=== PATIENT | female | born 1945 | race Caucasian/White ===

== ENCOUNTER 2016-08-25 19:27 | Emergency (ER) | payer MEDICARE ==
--- NOTE | 2016-08-25 20:43 | RAD ---
RIGHT ANKLE THREE VIEWS: History: Right ankle injury. FINDINGS: The ankle mortise is intact. No acute fracture or dislocation are apparent. IMPRESSION: No acute osseous abnormalities are demonstrated. POS: [facility]
--- NOTE | 2016-08-25 20:50 | RAD ---
RIGHT FOOT THREE VIEWS: History: Right foot injury. FINDINGS: Lisfranc joint alignment is anatomic. Mild bunion deformity is noted. There is no acute fracture, di slocation, or aggressive osseous erosions. IMPRESSION: No acute osseous abnormalities are demonstrated. POS: [facility]
== END 2016-08-25 20:30 | disposition home or self-care (01) ==
LOC: MADERS 19:27
DX: S93.601A Unspecified sprain of right foot, initial encounter (principal); I10 Essential (primary) hypertension; Z87.891 Personal history of nicotine dependence; X50.1XXA Overexertion from prolonged static or awkward postures, initial encounter

== ENCOUNTER 2016-09-04 10:13 | Outpatient (CLI) | payer MEDICARE ==
[2016-09-04 11:08] LABS: Anion Gap 11 mmol/L (10-20); BUN (Urea Nitrogen) 20 mg/dL (9.8-20.1); Calc. Creatinine Clearance 0 mL/min (70-130); Calcium 8.8 mg/dL (7.8-10.44); Carbon Dioxide 26 mmol/L (23-31); Chloride 103 mmol/L (98-107); Estimated GFR-MDRD 65; Glucose 93 mg/dL (80-115); Potassium 3.8 mmol/L (3.5-5.1); Sodium 136 mmol/L (136-145)
== END 2016-09-04 10:14 | disposition home or self-care (01) ==
LOC: MADLABBHPM 10:13
PROVIDERS: ATTEND Family Medicine
DX: I10 Essential (primary) hypertension (principal)
CPT/HCPCS: 36415; 80048

== ENCOUNTER 2016-12-04 09:53 | Outpatient (CLI) | payer MEDICARE ==
[2016-12-04 10:24] LABS: #Basophils 0.1 thou/uL (0.0-0.2); #Eosinphils 0.2 thou/uL (0.0-0.7); #Lymphocytes 1.4 thou/uL (1.20-3.40); #Monocytes 0.7 thou/uL (0.11-0.59); #Neutrophils 2.6 thou/uL (1.40-6.50); %Basophils 1.6 % (0.0-1.0); %Eosinophils 4.2 % (0.0-10.0); %Monocytes 13.6 % (0.0-10.0); %Neutrophils 52.6 % (42.0-75.0); Hemoglobin 13.4 g/dL (12.0-16.0); Mean Corpuscular HGB CONC 33.6 g/dL (32.0-36.0); Mean Corpuscular Hemoglobin 31.9 pg (27.0-31.0); Mean Corpuscular Volume 94.9 fl (81.0-99.0); Mean Platelet Volume 7.6 fL (7.4-10.4); Platelet Count 218 thou/uL (130-400); Red Blood Cell (RBC) Count 4.21 mill/uL (4.20-5.40)
[2016-12-04 10:39] LABS: Bilirubin Negative (Negative); Blood, Urine Negative (Negative); Clarity Clear (Clear); Glucose, Urine (Dipstick) Negative (Negative); Leukocyte Negative (Negative); Nitrite Negative (Negative); Protein, Urine (Dipstick) Negative (Neg-Trace); RBC/HPF 0-3 HPF (0-3); Urobilinogen 0.2 mg/dL (0.2-1.0); WBC/HPF 0-3 HPF (0-3); pH, Urine 5.5 (5.0-9.0)
[2016-12-04 10:40] LABS: Bacteria/HPF Rare-Few HPF (None Seen)
[2016-12-04 11:04] LABS: ALT (SGPT) 15 U/L (8-55); AST (SGOT) 21 U/L (5-34); Alkaline Phosphatase 62 U/L (40-150); Anion Gap 17 mmol/L (10-20); BUN (Urea Nitrogen) 25 mg/dL (9.8-20.1); Bilirubin, Total 0.5 mg/dL (0.2-1.2); Calc. Creatinine Clearance 0 mL/min (70-130); Calcium 8.8 mg/dL (7.8-10.44); Carbon Dioxide 21 mmol/L (23-31); Cardiac Risk 2.6 (Less than 4.5); Chloride 101 mmol/L (98-107); Cholesterol 148 mg/dl (< 200 Desired); Estimated GFR-MDRD 57; Globulin 3.1 g/dL (2.4-3.5); Glucose 87 mg/dL (80-115); HDL Cholesterol 58 mg/dL (>60 Neg Risk); LDL Cholesterol, Calculated 76 mg/dL; Potassium 3.6 mmol/L (3.5-5.1); Protein, Total 7.1 g/dL (6.0-8.3); Sodium 135 mmol/L (136-145); Triglycerides 69 mg/dL (Less than 150)
== END 2016-12-04 09:54 | disposition home or self-care (01) ==
LOC: MADLABBHPM 09:53
PROVIDERS: ATTEND Family Medicine
DX: I12.9 Hypertensive chronic kidney disease with stage 1 through stage 4 chronic kidney disease, or unspecified chronic kidney disease (principal); N18.2 Chronic kidney disease, stage 2 (mild); F32.9 Major depressive disorder, single episode, unspecified
CPT/HCPCS: 36415; 80053; 80061; 81001; 84443; 85025

== ENCOUNTER 2018-12-10 08:13 | Outpatient (CLI) | payer MEDICARE ==
[2018-12-10 09:09] LABS: Clarity Clear (Clear); Leukocyte Negative (Negative)
[2018-12-10 09:10] LABS: Bilirubin Negative (Negative); Blood, Urine Negative (Negative); Glucose, Urine (Dipstick) Negative (Negative); Nitrite Negative (Negative); Protein, Urine (Dipstick) Negative (Neg-Trace); Urobilinogen 0.2 mg/dL (Less than 2)
[2018-12-10 09:13] LABS: Bacteria/HPF 1+ HPF (None Seen); RBC/HPF 0-3 HPF (0-3); WBC/HPF 0-3 HPF (0-3)
[2018-12-10] MEDS ORDERED: Iopamidol 370 76% 100 ML VIAL ONE (09:30)
[2018-12-10 13:13] LABS: Hemoglobin 13.6 g/dL (12.0-16.0); Red Blood Cell (RBC) Count 4.68 mill/uL (4.20-5.40); White Blood Cell (WBC) Count 6.9 thou/uL (4.8-10.8)
[2018-12-10 13:14] LABS: #Lymphocytes 1.1 thou/uL (1.20-3.40); #Monocytes 0.4 thou/uL (0.11-0.59); #Neutrophils 5.8 thou/uL (1.40-6.50); %Basophils 0.4 % (0.0-1.0); %Lymphocytes 15.4 % (21.0-51.0); %Monocytes 0.6 % (0.0-10.0); %Neutrophils 83.6 % (42.0-75.0); Mean Corpuscular HGB CONC 31.7 g/dL (32.0-36.0); Mean Corpuscular Hemoglobin 29.1 pg (27.0-31.0); Mean Corpuscular Volume 91.9 fL (78.0-98.0); Mean Platelet Volume 6.6 fL (7.4-10.4); Platelet Count 274 thou/uL (130-400); RBC Distribution Width 12.3 % (11.5-14.5)
[2018-12-10 13:15] LABS: Sodium 135 mmol/L (136-145)
[2018-12-10 13:16] LABS: Albumin 4.5 g/dL (3.4-4.8); Alkaline Phosphatase 92 U/L (40-150); BUN (Urea Nitrogen) 25 mg/dL (9.8-20.1); Bilirubin, Total 0.4 mg/dL (0.2-1.2); Calc. Creatinine Clearance 0 mL/min (70-130); Calcium 9.1 mg/dL (7.8-10.44); Carbon Dioxide 21 mmol/L (23-31); Chloride 101 mmol/L (98-107); Cholesterol 203 mg/dL (< 200 Desired); Estimated GFR-MDRD 59; Globulin 3.1 g/dL (2.4-3.5); Glucose 197 mg/dL (83-110); Protein, Total 7.6 g/dL (5.8-8.1)
[2018-12-10 13:17] LABS: ALT (SGPT) 24 U/L (8-55); AST (SGOT) 25 U/L (5-34); HDL Cholesterol 71 mg/dL (>60 Neg Risk); Triglycerides 41 mg/dL (Less than 150)
[2018-12-10 13:18] LABS: Anion Gap 17 mmol/L (10-20)
[2018-12-10 13:20] LABS: LDL Cholesterol, Calculated 79 mg/dL
[2018-12-10 13:21] LABS: Cardiac Risk 2.9 (Less than 4.5)
--- NOTE | 2018-12-10 15:03 | CT ---
CT ABDOMEN AND PELVIS WITH CONTRAST: Multiple axial tomograms obtained with IV enhancement. INDICATION: Right lower quadrant pain. FINDINGS: Lung bases show centrally calcified 4 mm nodule in the right lung base. No infiltrate or effusion. Calcified granuloma in the spleen. The liver, spleen, and pancreas are unremarkable. There is a low-density nodule right adrenal measuring 1.2 cm which is indeterminate on this single ph ase study. The kidneys are unremarkable. No evidence of hydronephrosis. Small bowel loops normal caliber. The appendix is identified and appears unremarkable. There is prominent stool in the right colon. T here is luminal irregularity in the region of the hepatic flexure with poor distention. The transver se and right colon are also poorly distended. There is diverticulosis of the sigmoid colon. There are atherosclerotic changes in the aorta with normal caliber aorta. No free fluid. No mass or adenopathy. IMPRESSION: 1. Small right adrenal nodule. This is indeterminate on this single-phase study. Suggest followup CT abdomen without contrast which may confirm benign densities within this nodule. 2. Colon is not well distended and there is a suggestion of mural thickening in the region of the he patic flexure. Diverticulosis of the sigmoid colon. The appendix is normal in appearance. Recommen d elective colonoscopy. POS: [facility]
== END 2018-12-10 08:14 | disposition home or self-care (01) ==
LOC: MADCT 08:13
PROVIDERS: ATTEND Family Medicine
DX: I12.9 Hypertensive chronic kidney disease with stage 1 through stage 4 chronic kidney disease, or unspecified chronic kidney disease (principal); N18.2 Chronic kidney disease, stage 2 (mild); R10.9 Unspecified abdominal pain; E27.8 Other specified disorders of adrenal gland; K57.30 Diverticulosis of large intestine without perforation or abscess without bleeding
CPT/HCPCS: 36415; 74177; 80053; 80061; 81001; 84443; 85025; Q9967

== ENCOUNTER 2018-12-24 10:05 | Outpatient (CLI) | payer MEDICARE ==
--- NOTE | 2018-12-24 11:21 | CT ---
CLINICAL HISTORY: Right adrenal mass. TECHNIQUE: Multiple contiguous axial images were obtained and a CT of the abdomen without and with IV contrast. Postcontrast images were obtained in the venous and delayed phases. Coronal reformats were performed. COMPARISON: 12/10/2018 FINDINGS: Liver: Size: Normal. Contour: Smooth. Mass: None. Gallbladder and biliary system: Normal. No CT evident gallstones. No biliary ductal dilatation. Spleen: Normal. Pancreas: Normal. Kidneys: Normal. Adrenal glands: There is a 1.3 cm right adrenal mass. This has a mean Hounsfield unit value on the no ncontrast examination of -11. After contrast, this has a mean Hounsfield unit value of 53 immediately and a 7 on the 15 minute delayed image. GI tract: Normal. Abdominal aorta and its major branches: No aneurysm. Atherosclerotic calcifications in the aorta. Peritoneum/retroperitoneum: Normal. No ascites. No adenopathy. Body wall and musculoskeletal: Normal. Visualized lower thorax: Normal. No pulmonary parenchymal mass or pleural effusion. IMPRESSION: Right adrenal mass with enhancement characteristics consistent with a fat-containing adrenal adenoma.
== END 2018-12-24 10:06 | disposition home or self-care (01) ==
LOC: MADCT 10:05
PROVIDERS: ATTEND Family Medicine
DX: E27.8 Other specified disorders of adrenal gland (principal)
CPT/HCPCS: 74170

== ENCOUNTER 2023-04-24 09:57 | Emergency (ER) | payer MEDICARE ==
[2023-04-24] MEDS ORDERED: Lidocaine 1% PF 5 ML VIAL ONE (10:13)
[2023-04-24] MEDS ORDERED: Bacitracin 1 PK ONE (10:13)
[2023-04-24] MEDS ORDERED: Boostrix 0.5 ML (Tdap) VIAL (>/=7 yrs of age) ONE (10:14)
== END 2023-04-24 11:03 | disposition home or self-care (01) ==
LOC: MADERS 09:57
DX: S61.012A Laceration without foreign body of left thumb without damage to nail, initial encounter (principal); I10 Essential (primary) hypertension; Z87.891 Personal history of nicotine dependence; W26.0XXA Contact with knife, initial encounter; Y93.G9 Activity, other involving cooking and grilling
CPT/HCPCS: 12001; 90471; 90715